=== PATIENT | male | born 1995 | race Caucasian/White ===

== ENCOUNTER 2017-12-24 22:59 | Emergency (ER) | payer BC, OTHER ==
[~2017-12-24] VITALS: Ht 180.3 cm; Wt 83.9 kg
[~2017-12-24 22:59] MED LIST: ALLERGY MED
[2017-12-24] MEDS ORDERED: AMOXICILLIN 50500 MG PO (23:35)
[2017-12-24] MEDS ORDERED: CORTISPORIN OTI10 M2 OTIC (23:35)
[2017-12-24] MEDS ORDERED: NORCO 5-325 TA1 EACH PO (23:35)
[2017-12-24 23:44] VITALS: BP 136/77
== END 2017-12-24 23:45 | disposition home or self-care (01) ==
LOC: M.ERS 22:59
DX: H61.22 Impacted cerumen, left ear (principal); H60.92 Unspecified otitis externa, left ear; F17.210 Nicotine dependence, cigarettes, uncomplicated

== ENCOUNTER 2018-07-22 00:01 | Emergency (ER) | payer BC, OTHER ==
[~2018-07-22] VITALS: Ht 177.8 cm; Wt 77.1 kg
[~2018-07-22 00:01] MED LIST changes: +AMOXICILLIN 50500 MG PO; +CORTISPORIN OTI10 M2 OTIC; +NORCO 5-325 TA1 EACH PO
[2018-07-22] MEDS ORDERED: NORCO 7.5-3251 EACH PO (00:21)
[2018-07-22] MEDS ORDERED: PENICILLIN V P500 MG PO (00:21)
[2018-07-22 00:42] VITALS: BP 152/86
== END 2018-07-22 00:44 | disposition home or self-care (01) ==
LOC: M.ERS 00:01
DX: K02.9 Dental caries, unspecified (principal)

== ENCOUNTER 2018-09-08 02:27 | Emergency (ER) | payer BC, OTHER ==
[~2018-09-08] VITALS: Ht 177.8 cm; Wt 74.8 kg
[~2018-09-08 02:27] MED LIST changes: +NORCO 7.5-3251 EACH PO; +PENICILLIN V P500 MG PO
[2018-09-08 02:30] VITALS: BP 133/69
[2018-09-08] MEDS ORDERED: NORCO 5-325 TA1 EAC1 PO (02:39)
== END 2018-09-08 02:54 | disposition home or self-care (01) ==
LOC: M.ERS 02:27
DX: K08.409 Partial loss of teeth, unspecified cause, unspecified class (principal); F17.210 Nicotine dependence, cigarettes, uncomplicated

== ENCOUNTER 2018-09-30 22:17 | Emergency (ER) | payer OTHER, BC ==
[~2018-09-30] VITALS: Ht 177.8 cm; Wt 74.8 kg
[~2018-09-30 22:17] MED LIST changes: +NORCO 5-325 TA1 EAC1 PO
[2018-10-01] MEDS ORDERED: NORCO 5-325 TA1 EAC1 PO (00:36)
[2018-10-01 00:51] VITALS: BP 127/69
== END 2018-10-01 00:51 | disposition home or self-care (01) ==
LOC: M.ERS 22:17
DX: S00.83XA Contusion of other part of head, initial encounter (principal); Z88.6 Allergy status to analgesic agent; W22.8XXA Striking against or struck by other objects, initial encounter; Y92.89 Other specified places as the place of occurrence of the external cause; Y93.89 Activity, other specified; Y99.8 Other external cause status

== ENCOUNTER 2018-11-28 19:41 | Emergency (ER) | payer BC, OTHER ==
[~2018-11-28] VITALS: Ht 177.8 cm; Wt 74.8 kg
[2018-11-28] MEDS ORDERED: NORCO 5-325 TA1 EAC1 PO (23:21)
[2018-11-28] MEDS ORDERED: IBUPROFEN 800800 M1 PO (23:21)
[2018-11-28 23:33] VITALS: BP 134/82
== END 2018-11-28 23:35 | disposition home or self-care (01) ==
LOC: M.ERS 19:41
DX: M42.04 Juvenile osteochondrosis of spine, thoracic region (principal); Z88.6 Allergy status to analgesic agent

== ENCOUNTER → 2019-03-15 | Outpatient (CLI) | payer BC, OTHER ==
[~2019-03-15] MED LIST changes: +IBUPROFEN 800800 M1 PO; +MELOXICAM15 MG PO; +ZANAFLEX4 M1 PO
== END ==
LOC: M.PC 08:30
DX: M47.815 Spondylosis without myelopathy or radiculopathy, thoracolumbar region (principal); M42.00 Juvenile osteochondrosis of spine, site unspecified; M40.209 Unspecified kyphosis, site unspecified